=== PATIENT | female | born 1980 | race Hispanic/Latino ===

== ENCOUNTER → 2024-02-09 16:18 | Outpatient (REF) | payer OTHER, SELFPAY | LOC: WDC 16:18 | PROVIDERS: ATTENDING PHYSICIAN Nurse Practitioner Acute Care | DX: Z12.31 Encounter for screening mammogram for malignant neoplasm of breast (principal) | CPT/HCPCS: 77063; 77067 ==

== ENCOUNTER → 2024-02-10 08:13 | Outpatient (REF) | payer OTHER, SELFPAY ==
[2024-02-12 01:08] LABS: H. pylori Breath Test Negative (Negative)
== END ==
LOC: CLINIC 08:13
PROVIDERS: ATTENDING PHYSICIAN Nurse Practitioner Acute Care
DX: N76.0 Acute vaginitis (principal)
CPT/HCPCS: 83013

== ENCOUNTER → 2024-03-03 09:36 | Outpatient (REF) | payer OTHER, SELFPAY ==
[2024-03-03 10:59] LABS: % Basophils 0.6 % (0-2); % Eosinophils 2.4 % (0-6); % Immature Granulocytes 0.5 % (0-0.5); % Lymphocytes 40.5 % (20.5-51.1); Absolute Eosinophils 0.2 10^3/uL (0-0.7); Absolute Lymphocytes 2.7 10^3/uL (1.2-3.4); Absolute Monocytes 0.5 10^3/uL (0.1-0.6); Absolute Neutrophils 3.2 10^3/uL (1.4-6.5); Hemoglobin 12.4 g/dL (12.0-16.0); Mean Corp Hgb Conc. 34.4 g/dL (33.0-37.0); Mean Corpuscular Hgb 30.9 pg (27.0-31.0); Mean Corpuscular Volume 89.8 fL (81.0-99.0); Mean Platelet Volume 10.8 fL (7.4-10.4); Nucleated Red Blood Cells % 0 %; Platelet Count 215 10^3/uL (130-400); Red Blood Cell Count 4.01 10^6/uL (4.20-5.40); Red Cell Dist. Width 11.8 % (11.5-14.5); White Blood Cell Count 6.6 10^3/uL (4.8-10.8)
[2024-03-03 12:27] LABS: ALT (SGPT) 21 U/L (0-35); AST (SGOT) 23 U/L (14-36); Albumin 4.1 g/dl (3.5-5.0); Alkaline Phosphatase 72 U/L (38-126); Blood Urea Nitrogen 15 mg/dl (7-17); Calcium 9.5 mg/dl (8.4-10.2); Carbon Dioxide 25 mmol/L (22-30); Chloride 105 mmol/L (98-107); Glucose 90 mg/dl (70-99); HDL Cholesterol 38 mg/dl; LDL Cholesterol, Calculated 80 mg/dl; Potassium 4.3 mmol/L (3.5-5.1); Sodium 139 mmol/L (135-145); Total Bilirubin 0.8 mg/dl (0.2-1.3); Total Cholesterol 156 mg/dl (50-199); Total Protein 6.9 g/dl (6.3-8.2); Triglyceride 193 mg/dl (10-149); Very Low Density Lipoprotein 38 mg/dl (0-30); eGFR > 60.00
[2024-03-03 13:23] LABS: Glycohemoglobin (HgbA1c) 5.5 % (4.0-5.6)
== END ==
LOC: REG 09:36
PROVIDERS: ATTENDING PHYSICIAN Nurse Practitioner Acute Care
DX: Z00.00 Encounter for general adult medical examination without abnormal findings (principal)
CPT/HCPCS: 36415; 80053; 80061; 82306; 83036; 84443; 85025

== ENCOUNTER → 2024-03-23 10:35 | Outpatient (REF) | payer OTHER, SELFPAY ==
[2024-03-23 11:50] LABS: Iron 155 ug/dl (37-170)
[2024-03-23 11:59] LABS: Percent Saturation 40 % (20-50); Total Iron Binding Capacity 385 ug/dl (265-497)
[2024-03-23 12:27] LABS: Ferritin 34.5 ng/ml (6.24-137)
[2024-03-23 12:41] LABS: Vitamin B12 699 pg/ml (239-931)
[2024-03-24 15:54] LABS: Transferrin 298 mg/dL (200-360)
[2024-03-25 10:50] LABS: Vitamin B6 Results 159.2 nmol/L (20.0-125.0)
== END ==
LOC: CLINIC 10:35
PROVIDERS: ATTENDING PHYSICIAN Nurse Practitioner Acute Care
DX: D64.9 Anemia, unspecified (principal)
CPT/HCPCS: 82607; 82728; 83540; 83550; 84207; 84466

== ENCOUNTER → 2025-02-19 08:01 | Outpatient (REF) | payer OTHER, SELFPAY ==
[2025-02-19 08:25] LABS: Hematocrit 36.1 % (37.0-47.0); Hemoglobin 12.7 g/dL (12.0-16.0); Mean Corp Hgb Conc. 35.2 g/dL (33.0-37.0); Mean Corpuscular Hgb 31.8 pg (27.0-31.0); Mean Corpuscular Volume 90.3 fL (81.0-99.0); Mean Platelet Volume 10.9 fL (7.4-10.4); Platelet Count 192 10^3/uL (130-400); Red Cell Dist. Width 11.7 % (11.5-14.5); White Blood Cell Count 6.7 10^3/uL (4.8-10.8)
[2025-02-19 09:05] LABS: ALT (SGPT) 18 U/L (0-35); AST (SGOT) 21 U/L (14-36); Albumin 3.9 g/dl (3.5-5.0); Alkaline Phosphatase 62 U/L (38-126); Blood Urea Nitrogen 9 mg/dl (7-17); Calcium 8.9 mg/dl (8.4-10.2); Carbon Dioxide 25 mmol/L (22-30); Chloride 109 mmol/L (98-107); Glucose 96 mg/dl (70-99); HDL Cholesterol 29 mg/dl; LDL Cholesterol, Calculated 49 mg/dl; Potassium 3.9 mmol/L (3.5-5.1); Sodium 139 mmol/L (135-145); Total Bilirubin 0.9 mg/dl (0.2-1.3); Total Cholesterol 141 mg/dl (50-199); Total Protein 6.3 g/dl (6.3-8.2); Triglyceride 318 mg/dl (10-149); Very Low Density Lipoprotein 63 mg/dl (0-30); eGFR > 60.00
[2025-02-19 09:28] LABS: TSH Reflex To Free T4 1.26 uIU/ml (0.47-4.68)
== END ==
LOC: REG 08:01
PROVIDERS: ATTENDING PHYSICIAN Nurse Practitioner Adult Health
DX: Z00.00 Encounter for general adult medical examination without abnormal findings (principal)
CPT/HCPCS: 36415; 80053; 80061; 84443; 85027